=== PATIENT | female | born 1985 | race Caucasian/White ===

== ENCOUNTER 2018-05-29 06:05 | Day surgery (SDC) | payer OTHER ==
[~2018-05-29] VITALS: Ht 157.5 cm; Wt 67.6 kg
--- NOTE | ~2018-05-29 | OP ---
PATIENT NAME: CARLOS MARX MEDICAL RECORD: [id number] :85 LOCATION:[facility] ADMISSION DATE: SURGEON: CYNDIE AGGARWAL MD DATE OF OPERATION: 05/29/2018 PREOPERATIVE DIAGNOSES: 1. Pelvic mass. 2. Chronic pelvic pain. POSTOPERATIVE DIAGNOSES: 1. Severe adhesive disease. 2. Right ovarian cyst. PROCEDURES PERFORMED: 1. Diagnostic laparoscopy. 2. Right cystectomy. SURGEON: Cyndie Aggarwal MD RESTAURANT MGR: Mr. Shah ANESTHESIOLOGIST: Stephane Navas MD ANESTHETIC: General. FINDINGS: Multiple adhesions across the lower pelvis. Small bowel was adhesed to the vaginal cuff. Left ovary was poorly visualized due to adhesive disease. The right ovarian cyst was easily accessible. The posterior aspect of the ovary was being adhesed to the small bowel. SPECIMEN REMOVED: Cyst wall and capsule. SPECIMEN DISPOSITION: Pathology. ESTIMATED BLOOD LOSS: Less than or equal to 50 cc. FLUIDS: Lactated Ringer's 600 cc. URINE OUTPUT: Quantity sufficient void prior to this procedure. COMPLICATIONS: None. DRAINS: None. INDICATION: The patient is a 32-year-old female with pelvic pain. The patient's workup reveals pelvic mass. The patient desires definitive treatment for pelvic mass. DESCRIPTION OF PROCEDURE: After informed consent was assured, the patient was taken to the operating room, where anesthetic was obtained. The patient was then prepped and draped in usual sterile fashion. An incision was made at the umbilicus to accommodate a 5-mm bladeless trocar, which was inserted and pneumoperitoneum developed. Accessory port was now placed in the midline. A second port was placed in the right lower quadrant. Through this port, the right ovary was elevated, and using coagulation monopolar hook device, the OPERATIVE REPORT [id number] CARLOS MARX capsule overlying the cyst was incised. During this process, the cyst ruptured and straw-colored and blood-tinged fluid removed. [place] graspers now elevated the capsule and cyst wall and it was removed with cautery device. The ovary was irrigated and bleeding vessel was cauterized. Interceed was now placed over the remainder of the ovary. Visualization of the remains of the pelvis revealed the above findings. What was visualized of the abdominal anatomy was unremarkable. The accessory trocars were removed under direct visualization and pneumoperitoneum was released. The primary trocars were removed and all skin sites were reapproximated with Monocryl stitch. Dermabond was applied. Sponge, lap, and needle counts were correct times 2. The patient was awakened and went to the recovery area in stable condition. TRANSINT:[id number] Voice Confirmation ID: [id number] DOCUMENT ID: [id number] CYNDIE AGGARWAL MD at 1952 CC: [id number] DICTATION DATE: 06/04/181803 AGRICULTURE INSTRUCTOR: 06/04/18 1842 [facility] 05/29/18 [id number] [place] [address]
[2018-05-29 06:21] LABS: BASOPHILS 0.1 % (0-2); EOSINOPHILS 0.6 % (0-7); HEMATOCRIT 42.8 % (36.0-48.0); IMMATURE GRANULOCYTES 0.1 % (0-5); LYMPHOCYTES 24.1 % (15-50); MCH 32.5 pg (26.0-34.0); MCHC 32.7 g/dL (31.0-37.0); MCV 99.3 fL (80.0-100.0); MEAN PLATELET VOLUME 11.1 fL (7.4-10.4); MONOCYTES 4.1 % (2-11); PLATELET COUNT 211 10x3/uL (130-400); RBC 4.31 10x6/uL (4.00-5.40); WBC 8.5 10x3/uL (4.8-10.8)
[2018-05-29 06:30] LABS: HCG SERUM NEGATIVE (NEGATIVE)
[2018-05-29 08:19] VITALS: BP 94/60; Ht 157.5 cm; Wt 67.6 kg
== END 2018-05-29 13:20 | disposition home or self-care (01) ==
LOC: D.OPS 06:05 → D.PAN 08:15 → D.OPS 09:45
PROVIDERS: Anesthesiology
DX: N83.201 Unspecified ovarian cyst, right side (principal); Z01.812 Encounter for preprocedural laboratory examination